=== PATIENT | female | born 1980 | race Caucasian/White ===

== ENCOUNTER 2018-02-05 19:24 | Emergency (ER) | payer OTHER ==
[~2018-02-05] VITALS: Ht 149.9 cm; Wt 51.7 kg
[2018-02-05] MEDS ORDERED: ASPIRIN81 M2 PO (20:27)
[2018-02-05] MEDS ORDERED: PERCOCET 5/31 TABLET PO (20:27)
[2018-02-05] MEDS ORDERED: FLEXERIL10 MG PO (20:27)
[2018-02-05 23:41] VITALS: BP 136/77
== END 2018-02-05 23:43 | disposition home or self-care (01) ==
LOC: EME 19:24
PROC: 2W3QX1Z Immobilization of Right Lower Leg using Splint (ICD-10-PCS; principal; 2018-02-05)
DX: S92.001A Unspecified fracture of right calcaneus, initial encounter for closed fracture (principal); S93.401A Sprain of unspecified ligament of right ankle, initial encounter; Y93.39 Activity, other involving climbing, rappelling and jumping off; F17.200 Nicotine dependence, unspecified, uncomplicated
CPT/HCPCS: 73610; 73630; 73700; 99281; 99284; J3010; J7030

== ENCOUNTER 2018-02-19 11:39 | Day surgery (SDC) | payer OTHER ==
[~2018-02-19] VITALS: Ht 152.4 cm; Wt 51.7 kg
[~2018-02-19 11:39] MED LIST: ASPIRIN81 M2 PO; BENTYL10 MG PO; ELAVIL10 MG PO; FLEXERIL10 MG PO; IBUPROFEN800 MG PO; PERCOCET 5/31 TABLET PO; TRAMADOL HCL50 MG PO; TRI-LO-MARZIA1 EACH PO
[2018-02-19 12:13] VITALS: BP 113/70
[2018-02-19 12:22] LABS: HEMATOCRIT 36.5 % (36.0-46.0); MCH 29.8 PG (29.0-34.0); MCHC 32.9 G/DL (30.0-36.0); MCV 90.6 FL (83-99); PLATELET COUNT 351 K/uL (156-360); RBC DIS.WIDTH-CV 12.4 % (11.8-14.6); RBC DIS.WIDTH-SD 40.9 % (39-53); RED BLOOD COUNT 4.03 M/uL (3.80-5.20)
[2018-02-19 18:20] VITALS: BP 109/69
[2018-02-19 18:54] VITALS: BP 116/66
== END 2018-02-19 19:02 | disposition home or self-care (01) ==
LOC: SDC 11:39
PROVIDERS: Podiatrist Foot & Ankle Surgery
PROC: 0QSL04Z Reposition Right Tarsal with Internal Fixation Device, Open Approach (ICD-10-PCS; principal; 2018-02-19)
DX: S92.061A Displaced intraarticular fracture of right calcaneus, initial encounter for closed fracture (principal); F41.8 Other specified anxiety disorders; Z86.19 Personal history of other infectious and parasitic diseases; Z87.440 Personal history of urinary (tract) infections; Z83.3 Family history of diabetes mellitus; Z81.8 Family history of other mental and behavioral disorders; Z87.891 Personal history of nicotine dependence; W17.89XA Other fall from one level to another, initial encounter
CPT/HCPCS: 73650; 76000; 85027; 87641; C1713; J0131; J0690; J1100; J1170; J1885; J2250; J2405; J2795; J3010; S0020